=== PATIENT | female | born 1980 | race Caucasian/White ===

== ENCOUNTER 2016-07-23 21:15 | Inpatient (IN) | payer OTHER ==
[~2016-07-23] VITALS: Ht 155 cm; Wt 96.4 kg
[~2016-07-23 21:15] MED LIST: CITRIC ACID/SODIUM CITRATE 30 ML SOLUTION UDCUP PO PRN; LIDOCAINE HCL/PF 1% 30 ML VIAL INJ PRN; METOCLOPRAMIDE HCL 5 MG/ML 2 ML VIAL IVP PRN; OXYTOCIN 30 UNITS/LACT RINGERS 500 ML IV ONE; RINGERS SOLUTION,LACTATED 1,000 ML IV ONE
[2016-07-23] MEDS: MISOPROSTOL 25 MCG TABLET VG SCH (22:37)
[2016-07-23] MEDS: RINGERS SOLUTION,LACTATED 1,000 ML IV SCH (22:38)
[2016-07-23] MEDS: AMPICILLIN SODIUM 1 GM/NS 50 ML IV SCH (22:38)
[2016-07-23 22:39] LABS: BASOPHILS % (AUTO) 0.3 % (0.0-2.0); EOSINOPHILS % (AUTO) 8.4 % (1.0-6.0); HEMATOCRIT 37.4 % (36-46); HEMOGLOBIN 12.2 g/dL (12.0-16.0); LYMPHOCYTES # (AUTO) 2.1 K/uL (1.0-4.8); LYMPHOCYTES % (AUTO) 20.8 % (22.0-44.0); MEAN CORPUSCULAR HEMOGLOBIN 30.4 pg (26.0-34.0); MEAN CORPUSCULAR HGB CONC 32.6 G/dL (31.0-37.0); MEAN CORPUSCULAR VOLUME 93 fL (80-100); MONOCYTES # (AUTO) 0.9 K/uL (0.1-1.0); NEUTROPHILS # (AUTO) 6.4 K/uL (1.8-7.7); NEUTROPHILS % (AUTO) 61.5 % (40.0-70.0); PLATELET COUNT (AUTO) 205 K/uL (150-450); RED BLOOD CELL COUNT(AUTO) 4.02 MIL/uL (4.00-5.20); RED CELL DISTRIBUTION WIDTH 13.3 % (11.5-14.5); WHITE BLOOD COUNT (AUTO) 10.3 K/uL (4.5-11.0)
[2016-07-23 23:01] VITALS: BP 112/66
[2016-07-23] MEDS ORDERED: AMOX875T2 PO (23:01)
[2016-07-23] MEDS ORDERED: PREN1TAB89 PO (23:01)
[2016-07-24] MEDS: MISOPROSTOL 25 MCG TABLET VG SCH ×2 (02:37→06:15)
[2016-07-24] MEDS: AMPICILLIN SODIUM 1 GM/NS 50 ML IV SCH ×3 (04:47→16:14)
[2016-07-24] MEDS: RINGERS SOLUTION,LACTATED 1,000 ML IV SCH ×2 (04:47→16:15)
[2016-07-24] MEDS ORDERED: OXYTOCIN 30 UNITS/LACT RINGERS 500 ML IV PRN (05:51)
[2016-07-24] MEDS ORDERED: BUPIVACAINE HCL/PF 0.25% 10 ML VIAL ONE (09:13)
[2016-07-24] MEDS ORDERED: FentaNYL/BUPIV 0.125%/NS/PF 200 ML ED ONE (09:14)
[2016-07-24] MEDS ORDERED: OXYTOCIN 30 UNITS/LACT RINGERS 500 ML IV ONE (11:41)
[2016-07-24] MEDS ORDERED: MISOPROSTOL 25 MCG TABLET ONE (11:41)
[2016-07-24] MEDS ORDERED: RINGERS SOLUTION,LACTATED 1,000 ML IV ONE (11:41)
[2016-07-24] MEDS ORDERED: AMPICILLIN SODIUM 1 GM/NS 50 ML IV ONE ×2 (11:41)
[2016-07-24] MEDS ORDERED: LANOLIN 7 GM OINTMENT TP PRN (18:45)
[2016-07-24] MEDS ORDERED: IBUPROFEN 800 MG TABLET PO PRN (18:45)
[2016-07-24] MEDS ORDERED: SENNA/DOCUSATE SODIUM 187-50 MG TABLET PO PRN (18:45)
[2016-07-24] MEDS ORDERED: BENZOCAINE 20%/MENTHOL 56 GM SPRAY CANISTER TP PRN (18:45)
[2016-07-24] MEDS ORDERED: GLYCERIN/WITCH HAZEL LEAF 40 PADS JAR TP PRN (18:45)
[2016-07-24] MEDS ORDERED: METHYLERGONOVINE MALEATE 0.2 MG TABLET PO PRN (18:45)
[2016-07-24] MEDS ORDERED: MAGNESIUM HYDROXIDE SUSPENSION 30 ML UDCUP PO PRN (18:45)
[2016-07-24] MEDS ORDERED: OxyCODONE HCL/ACETAMINOPHEN 5-325 MG TABLET PO PRN ×2 (18:45)
[2016-07-24] MEDS: AMOX TR/POT CLAV 875 MG/125 MG TABLET PO SCH (23:36)
[2016-07-25 06:09] LABS: BASOPHILS % (AUTO) 0.3 % (0.0-2.0); EOSINOPHILS % (AUTO) 1.7 % (1.0-6.0); HEMATOCRIT 29.8 % (36-46); HEMOGLOBIN 9.5 g/dL (12.0-16.0); LYMPHOCYTES # (AUTO) 2.2 K/uL (1.0-4.8); LYMPHOCYTES % (AUTO) 14.7 % (22.0-44.0); MEAN CORPUSCULAR HEMOGLOBIN 29.8 pg (26.0-34.0); MEAN CORPUSCULAR HGB CONC 31.8 G/dL (31.0-37.0); MEAN CORPUSCULAR VOLUME 94 fL (80-100); MONOCYTES # (AUTO) 1.2 K/uL (0.1-1.0); NEUTROPHILS # (AUTO) 11.3 K/uL (1.8-7.7); NEUTROPHILS % (AUTO) 75.3 % (40.0-70.0); RED BLOOD CELL COUNT(AUTO) 3.18 MIL/uL (4.00-5.20); RED CELL DISTRIBUTION WIDTH 13.4 % (11.5-14.5)
[2016-07-25] MEDS: AMOX TR/POT CLAV 875 MG/125 MG TABLET PO SCH (12:55)
[2016-07-25] MEDS ORDERED: IBUP-1547 PO (15:34)
[2016-07-25] MEDS ORDERED: DSS100 PO (15:35)
[2016-07-25] MEDS ORDERED: FERR-89 PO (15:37)
== END 2016-07-25 20:20 | disposition home or self-care (01) | DRG 775 ==
LOC: OBSVTOIN 21:15 → 4S 21:15
PROVIDERS: ADMIT Specialist; ATTEND Specialist
PROC: 10E0XZZ Delivery of Products of Conception, External Approach (ICD-10-PCS; principal; 2016-07-24)
PROC: 0W8NXZZ Division of Female Perineum, External Approach (ICD-10-PCS; 2016-07-24)
PROC: 10907ZC Drainage of Amniotic Fluid, Therapeutic from Products of Conception, Via Natural or Artificial Opening (ICD-10-PCS; 2016-07-24)
PROC: 3E0S3CZ (ICD-10-PCS; 2016-07-24)
PROC: 00HU33Z Insertion of Infusion Device into Spinal Canal, Percutaneous Approach (ICD-10-PCS; 2016-07-24)
DX: O13.4 Gestational [pregnancy-induced] hypertension without significant proteinuria, complicating childbirth (principal); O64.0XX0 Obstructed labor due to incomplete rotation of fetal head, not applicable or unspecified; Z3A.39 39 weeks gestation of pregnancy; Z37.0 Single live birth
CPT/HCPCS: 86850; 86900; 86901; J0290; J2590; J3490; J7120